=== PATIENT | male | born 1995 | race Caucasian/White ===

== ENCOUNTER 2018-08-21 22:15 | Emergency (ER) | payer SELFPAY ==
[2018-08-21 22:26] VITALS: BP 142/95
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
== END 2018-08-21 23:00 | disposition home or self-care (01) ==
LOC: LL.ED 22:15
DX: N45.1 Epididymitis (principal); Z71.6 Tobacco abuse counseling
CPT/HCPCS: 99283